=== PATIENT | male | born 1990 | race African-American/Black ===

== ENCOUNTER 2021-10-11 21:52 | Emergency (ER) | payer SELFPAY | END 2021-10-11 23:28 | disposition home or self-care (01) | LOC: CSHERS 21:52 | DX: L02.214 Cutaneous abscess of groin (principal) | CPT/HCPCS: 99283 ==

== ENCOUNTER 2021-12-27 12:02 | Emergency (ER) | payer SELFPAY | END 2021-12-27 15:16 | disposition home or self-care (01) | LOC: CSHERS 12:02 | DX: S62.633A Displaced fracture of distal phalanx of left middle finger, initial encounter for closed fracture (principal); M79.672 Pain in left foot; X58.XXXA Exposure to other specified factors, initial encounter ==